=== PATIENT | male | born 1985 | race Caucasian/White ===

== ENCOUNTER 2017-07-27 01:39 | Emergency (ER) | payer BC, OTHER ==
[~2017-07-27] VITALS: Ht 177.8 cm; Wt 90.7 kg
[2017-07-27] MEDS ORDERED: IBUPROFEN 600 MG TAB PO STA (01:47)
[2017-07-27] MEDS ORDERED: IBUPROFEN 600 MG TAB ONE (01:52)
[2017-07-27 02:10] VITALS: BP 123/78
--- NOTE | 2017-07-27 03:21 | Diagnostic Imaging Report ---
CHEST 2 VIEWS, Technique: CHEST 2 VIEWS Comparison: None Clinical history: Cough, fever DISCUSSION: Heart/mediastinum: Normal Lungs: No consolidation or edema. Pleural spaces: No effusion or pneumothorax. IMPRESSION: No acute abnormality Signed by: Dr Catie Maya MD on 07/27/2017 3:17 AM
== END 2017-07-27 03:15 | disposition home or self-care (01) ==
LOC: ER 01:39
DX: R50.9 Fever, unspecified (principal); R05 Cough; J20.9 Acute bronchitis, unspecified
CPT/HCPCS: 71020; 87400; 99283